=== PATIENT | female | born 1990 | race Caucasian/White ===

== ENCOUNTER → 2016-04-04 | Outpatient (CLI) | payer BC ==
--- NOTE | 2016-04-04 14:53 | FL ---
Esophagram INDICATION: Dysphagia Esophagram is performed with single contrast. Thick and thick barium was utilized. Esophagus has a normal caliber has normal contour to the gastroesophageal junction. Gastroesophageal junction opens to normal caliber. No stenosis or hiatal hernia was identified on post Dima fundopli cation. Secondary contraction was evident at the distal esophagus in the horizontal drinking position. There is complete emptying in the upright view. No intraluminal or extramural defects is evident. IMPRESSIONS: 1. Secondary contraction the horizontal drinking position. 2. Esophagram otherwise appears unremarkable.
== END | disposition home or self-care (01) ==
LOC: RADFLWHC 10:31
PROVIDERS: ATTEND Surgery
DX: R13.10 Dysphagia, unspecified (principal)
CPT/HCPCS: 74220

== ENCOUNTER 2016-04-07 09:33 | Day surgery (SDC) | payer BC ==
[2016-04-04 08:21] VITALS: BMI 21.2
[~2016-04-07 09:33] MED LIST: LACTATED RINGERS 1,000 ML IV SCH
[2016-04-07 10:45] VITALS: RESP 16; TEMP 97.8
[2016-04-07] MEDS ORDERED: LIDOCAINE 1% 20 ML VIAL (10MG/ML) FOR IV START INTRADERMA ONE (10:45)
[2016-04-07] MEDS ORDERED: LIDOCAINE 1% INJ 10MG/ML (20 ML MDV) ONE (10:51)
[2016-04-07] MEDS ORDERED: PROPOFOL 10 MG/ML 20 ML VIAL IV ONE (10:51)
--- NOTE | 2016-04-07 10:54 | P.GSHP ---
History of Present Illness H&P Date: 04/07/16 Chief Complaint: Feeling of fullness and throat Is a 26-year-old female who presents today for EGD. Patient has complaints of feeling food gets stuck in her throat. She's had a previous hiatal hernia repair. Her esophagram shows no evidence of reflux or obstruction. She presents today for EGD. - Constitutional Constitutional: Reports as per HPI Past Medical History Past Medical History: GERD/Reflux Additional Past Medical History / Comment(s): hypoglycemia, hx hiatal hernia, History of Any Multi-Drug Resistant Organisms: None Reported Additional Past Surgical History / Comment(s): conor fundoplication, oral surgery, tear ducts as infant, EGD Past Anesthesia/Blood Transfusion Reactions: Previous Problems w/ Anesthesia, Family History of Problems w/ Anesthesia Additional Past Anesthesia/Blood Transfusion Reaction / Comment(s): grandmother had problems with anesthesia- 'paralyized for 1 week" after surgery- "miloclopramide-succiny choline" was the medication, pt had runny nose for two days post op after EGD Past Psychological History: Anxiety, Depression Smoking Status: Never smoker Past Alcohol Use History: Occasional Past Drug Use History: None Reported - Past Family History Mother Family Medical History: No Reported History Medications and Allergies Home Medications Medication Instructions Recorded Confirmed Type No Known Home Medications [No 04/04/16 04/07/16 History Known Home Medications] Allergies Allergy/AdvReac Type Severity Reaction Status Date / Time adhesive tape Allergy red skin Verified 04/07/16 10:25 Antihistamines - Alkylamine Allergy faints Verified 04/07/16 10:25 pseudoephedrine Allergy Unknown Verified 04/07/16 10:25 [From [facility]] miloclopramide succiny Allergy Unknown Uncoded 04/04/16 08:14 Surgical - Exam Vital Signs Temp Pulse Resp BP Pulse Ox 97.8 F 67 16 101/69 99 04/07/16 10:43 04/07/16 10:43 04/07/16 10:43 04/07/16 10:43 04/07/16 10:43 Assessment and Plan Plan: Dysphagia. We'll perform EGD.
--- NOTE | 2016-04-07 11:01 | P.OP ---
Date of Procedure: 04/07/16 Preoperative Diagnosis: Dysphagia Postoperative Diagnosis: Mild antral gastritis No evidence of hiatal hernia No evidence of esophagitis Procedure(s) Performed: EGD Anesthesia: MAC Surgeon: Tulio Hamlin Pathology: other (Antrum) Condition: stable Disposition: PACU Description of Procedure: The patient's placed on the endoscopy table in the lateral position. She received IV sedation. The gastroscope some placed oropharynx and passed into the esophagus and stomach. The scope was placed through the pylorus. First and second portion of duodenum appeared normal. Scope was then brought back the antrum this. Mildly inflamed. A biopsies performed. Scope was retroflexed and remainder stomach appeared normal. The hiatus was examined. There is no evidence of a hiatal hernia. The GE junction was at 40 cm. The distal esophagus appeared normal. The proximal esophagus appeared normal. Scope was withdrawn for patient.
[2016-04-07 12:11] VITALS: BP 98/67; PULSE 69
== END 2016-04-07 12:13 | disposition home or self-care (01) ==
LOC: ORWHC2ENDO 09:33
PROVIDERS: ATTEND Surgery
DX: K29.50 Unspecified chronic gastritis without bleeding (principal); K21.9 Gastro-esophageal reflux disease without esophagitis; Z88.8 Allergy status to other drugs, medicaments and biological substances; Z91.048 Other nonmedicinal substance allergy status
CPT/HCPCS: 81025; 88305; 88342; 43239; J2001; J2704

== ENCOUNTER 2022-01-14 10:49 | Day surgery (SDC) | payer BC ==
[~2022-01-14 10:49] MED LIST changes: +LIDOCAINE 1% (10MG/ML) FOR IV START INTRADERMA PRN
[2022-01-14] MEDS ORDERED: LACTATED RINGERS 1,000 ML IV ONE (11:50)
[2022-01-14 12:00] VITALS: RESP 16; TEMP 97.7
[2022-01-14] MEDS ORDERED: PROPOFOL 10 MG/ML 20 ML VIAL IV ONE (13:20)
--- NOTE | 2022-01-14 13:35 | P.PCN ---
Date of Procedure: 01/14/22 Procedure(s) Performed: BRIEF HISTORY: Patient is a 31-year-old pleasant white female scheduled for an elective colonoscopy as a part of evaluation of intermittent rectal bleeding. PROCEDURE PERFORMED: Colonoscopy. PREOPERATIVE DIAGNOSIS: Intermittent rectal bleeding. IV sedation per Anesthesia. PROCEDURE: After informed consent was obtained, the patient, was brought into the endoscopy unit. IV sedation was administered by Anesthesia under continuous monitoring. Digital rectal examination revealed a small anal fissure. Initially the Olympus CF-160 flexible video colonoscope was then inserted in the rectum, gradually advanced into the cecum without any difficulty. Careful examination was performed as the scope was gradually being withdrawn. Ileocecal valve and the appendiceal orifice were visualized and appeared normal. Prep was excellent. Mucosa of the cecum, ascending colon, transverse colon, descending colon, sigmoid colon, and rectum appeared normal. Retroflexion was performed in the rectum and no lesions were seen. The patient tolerated the procedure well. IMPRESSION: Normal-appearing colon from rectum to cecum with no evidence of colorectal neoplasia . Small superficial anal fissure. RECOMMENDATIONS: Findings of this examination were discussed with the patient as well as a family.. She was advised to be a high-fiber diet and take fiber supplements a regular basis and avoid straining and constipation.
[2022-01-14 13:59] VITALS: BP 113/75; PULSE 80
== END 2022-01-14 14:35 | disposition home or self-care (01) ==
LOC: ORWHC2ENDO 10:49
PROVIDERS: ATTEND Internal Medicine Gastroenterology
DX: K51.911 Ulcerative colitis, unspecified with rectal bleeding (principal)
CPT/HCPCS: 84703; 45378; J2704

== ENCOUNTER → 2023-01-05 | Outpatient (CLI) | payer BC | END | disposition home or self-care (01) | LOC: LABWHC1 15:31 | PROVIDERS: ATTEND Family Medicine | DX: M79.89 Other specified soft tissue disorders (principal); R09.02 Hypoxemia; R76.8 Other specified abnormal immunological findings in serum | CPT/HCPCS: 36415; 85379 ==

== ENCOUNTER → 2023-06-18 | Outpatient (CLI) | payer BC ==
--- NOTE | 2023-06-18 15:42 | P.SLEEP ---
History of Present Illness DATE: 06/18/2023 CONSULTATION/NEW PATIENT EVALUATION HISTORY OF PRESENT ILLNESS/SLEEP-WAKE EVALUATION: 33-year-old lady had been e valuated in the sleep center for possible obstructive sleep apnea hypopnea syndrome and significant excessive daytime sleepiness. Patient had oximetry which was done in show primary care physician office and test showed oxygen desaturation for below 90% during the night for 30 sec. SLEEP SCHEDULE: Usually patient goes to bed after 9 and sleep until 8 AM 7 days a week. FALLING ASLEEP: No problems with falling asleep, although there is a TV in bedroom. DURING SLEEP: Patient sleeps in different positions including back, side and stomach position with loud snoring, awakenings from sleep with choking up to 4 times per night. No history of nocturia no history of hypnogogical hallucinations, sleep paralysis, or cataplexy. DURING THE DAY/WAKE STATE: In the morning patient wake up tired, falling asleep during the day. Patient has problem with concentration, irritability, depression and anxiety. [place] Sleepiness Scale is in very high range of 17. Patient trying to avoid naps because feels not well after taking nap. She takes up to 5 rest. During the day. PAST MEDICAL HISTORY: Mixed autoimmune disease, headaches, depression, nasal septal deviation. PAST SURGICAL HISTORY: Claus fundoplication for hiatal hernia in 2016. MEDICATIONS: Please see below, additionally BuSpar as needed. SOCIAL HISTORY: Please see below. FAMILY HISTORY: Heart problems, arthritis, cancer, mental illness, lung problems. REVIEW OF SYSTEMS: Loud snoring, multiple awakenings from sleep, sleepiness during the day. No fevers. No double vision. No recent chest pain. No shortness of breath. No abdominal pain. No bleeding episodes. No blood in urine. No seizure episodes. PHYSICAL EXAMINATION: GENERAL: A pleasant patient without any distress. VITAL SIGNS: Please see below, weight 145.8 pounds, BMI 25.8. HEENT: PERRLA, EOMI. Evaluation of oropharynx showed tongue protrudes midline, low position of soft palate Mallampati 3. NECK: Supple. No JVD. Thyroid is not palpable. 14 inches in circumference. LUNGS: Clear to percussion and to auscultation. Good air exchange. No wheezing or rhonchi. HEART: S1, S2 regular. No murmurs, gallops or rubs. ABDOMEN: Soft and nontender. Bowel sounds are present. No organomegaly appreciated. EXTREMITIES: No clubbing or cyanosis. FUEL CELL ENGINEER: Awake, alert, and oriented x3. Cranial nerves 2 to 7 intact. There is no fasciculation or atrophy noted. No focal deficits observed. ASSESSMENT: 1. Loud snoring, multiple awakenings from sleep, low position of soft palate Mallampati 3, sleepiness. Obstructive sleep apnea hypopnea syndrome. 2. Extremely high [place] Sleepiness Scale of 17 dictate necessity to include hypersomnia and narcolepsy type II in differential diagnosis. 3. Headaches. 4. Autoimmune mixed connective tissue disease. 5 status post Claus fundoplication for hiatal hernia. 6 . History of depression. 7. History of anxiety. 8. Nasal septal deviation. PLAN: 1. Polysomnography for evaluation of patient's breathing during sleep. 2. Following plan after reading sleep study. 3. Preferable position during sleep on the side. 4. No driving if patient feels any sleepiness. Patient is aware of civil and criminal liability for unsafe driving. 5. Sleep hygiene with regular sleep time for at least 7.5-8 hours. 6. Watching weight. Thank you very much for referring this patient for consultation. Sincerely, Oz Deleon MD, PhD, FAASM. Diplomat of [place] [employer], Sleep Medicine Board by [place] [employer] [place] [employer] [facility] [place] Past Medical History Past Medical History: Fibromyalgia, GERD/Reflux Additional Past Medical History / Comment(s): hypoglycemia, hx hiatal hernia. RECENTLY DIAGNOSED WITH AUTOIMMMUNE- MIXED CONNECTIVE TISSUE DISORDER. History of Any Multi-Drug Resistant Organisms: None Reported Additional Past Surgical History / Comment(s): Claus fundoplication. Oral surgery. Tear ducts as . EGD Past Anesthesia/Blood Transfusion Reactions: Family History of Problems w/ Anesthesia Additional Past Anesthesia/Blood Transfusion Reaction / Comment(s): grandmother had problems with anesthesia- 'paralyized for 1 week" after surgery- "miloclopramide-succiny choline" was the medication, pt had runny nose for two days post op after EGD Past Psychological History: Anxiety, Depression Smoking Status: Never smoker Past Alcohol Use History: Occasional Past Drug Use History: None Reported - Past Family History Mother Family Medical History: No Reported History Medications and Allergies Home Medications Medication Instructions Recorded Confirmed Type Ergocalciferol [Vitamin D2 (1250 1 tab PO WE 01/10/22 06/18/23 History Mcg = 46686 Iu)] Cyclobenzaprine [Flexeril] 5 mg PO PRN 06/18/23 History Ibuprofen [Motrin] 800 mg PRN 06/18/23 History predniSONE 0 mg PO DIRECTED 06/18/23 06/18/23 History Allergies Allergy/AdvReac Type Severity Reaction Status Date / Time adhesive tape Allergy red skin Verified 01/14/22 11:34 Antihistamines - Alkylamine Allergy faints Verified 01/14/22 11:34 miloclopramide succiny Allergy Unknown Uncoded 01/14/22 11:34 Physical Exam Vitals: Intake and Output 06/18/23 06/18/23 06/18/23 06:59 14:59 22:59 Other: Weight 65.771 kg Sleep Note - Sleep Data ESS Total: 17 - Sleep Note Sleep Note: Temperature: Pulse Rate: Respiratory Rate: Blood Pressure: SpO2: Height: 5 ft 3 in Weight: 65.771 kg BMI: Neck Circumference:
== END ==
LOC: 3 N SLEEP 14:52
PROVIDERS: ATTEND Internal Medicine
DX: G47.33 Obstructive sleep apnea (adult) (pediatric) (principal); G47.10 Hypersomnia, unspecified; R51.9 Headache, unspecified; M35.1 Other overlap syndromes; J34.2 Deviated nasal septum; Z86.59 Personal history of other mental and behavioral disorders; Z98.890 Other specified postprocedural states; Z90.49 Acquired absence of other specified parts of digestive tract; Z91.048 Other nonmedicinal substance allergy status; Z88.8 Allergy status to other drugs, medicaments and biological substances
CPT/HCPCS: 99202

== ENCOUNTER → 2023-06-29 | Outpatient (CLI) | payer BC ==
--- NOTE | 2023-07-01 14:58 | P.PCN ---
Description of Procedure: CLINICAL: A home sleep apnea test has been done for confirmation of possible obstructive sleep apnea-hypopnea syndrome. DESCRIPTION OF PROCEDURE: RESULTS: Recording time was 6 hours 33 minutes. Evaluation time was 6 hours 21 minutes. Evaluation time is sufficient for making conclusion about results of the test. Raw data of sleep recording has been reviewed and is adequate. Respiratory channel showed 9 apneas and 17 hypopneas. Apnea-hypopnea index was 4.1 per hour. Pulse rate in the range between minimum 66, maximum 123, average 87 by computer calculation. Lowest desaturation was 84%. IMPRESSION: 1. No significant respiratory abnormalities following today's criteria. 2. Patient presents with symptoms of significant excessive daytime sleepiness with [place] Sleepiness Scale 17 which dictate necessity to include narcolepsy and idiopathic hypersomnia differential diagnosis. Please see other impressions from consultation. PLAN: 1. Multiple sleep latency test for objective evaluation symptoms of excessive daytime sleepiness. 2. Following plan after reading MSLT. 3. No driving if feeling any sleepiness. 4. Sleep hygiene with regular time in bed for at least 8 hours. Thank you very much for allowing me to participate in the management of your patient. Sincerely, Oz Deleon MD, PhD, FAASM Diplomat of [employer] Sleep Medicine Board of [employer] [facility] [place]
== END ==
LOC: 3 N SLEEP 13:05
PROVIDERS: ATTEND Internal Medicine
DX: G47.33 Obstructive sleep apnea (adult) (pediatric) (principal); G47.10 Hypersomnia, unspecified; Z91.048 Other nonmedicinal substance allergy status; Z88.8 Allergy status to other drugs, medicaments and biological substances

== ENCOUNTER 2024-01-18 08:09 | Day surgery (SDC) | payer BC ==
[2024-01-15 10:42] VITALS: BMI 26.5
[~2024-01-18 08:09] MED LIST changes: -LACTATED RINGERS 1,000 ML IV SCH
[2024-01-18] MEDS: IV FLUID CONTINUATION 1,000 ML IV ONE (08:21)
[2024-01-18 08:43] LABS: Glucose,Whole Blood 93 mg/dL (70-110)
[2024-01-18] MEDS: LACTATED RINGERS 1,000 ML IV SCH (08:45)
[2024-01-18 08:48] VITALS: TEMP 97.4
[2024-01-18] MEDS: IPRATROPIUM-ALBUTEROL 3 ML NEB INHALATION STA (08:54)
[2024-01-18] MEDS ORDERED: fentaNYL (PF) 50 MCG/ML 2 ML AMP ONE (09:07)
[2024-01-18] MEDS ORDERED: PROPOFOL 10 MG/ML 20 ML VIAL IV ONE (09:07)
[2024-01-18] MEDS ORDERED: LIDOCAINE 2% (PF) 20 MG/ML 5 ML VIAL ONE (09:07)
--- NOTE | 2024-01-18 09:09 | P.GSHP ---
History of Present Illness H&P Date: 01/18/24 Chief Complaint: Gerd This a 33-year-old female who presents a for EGD. Patient history of GERD. Patient's previous history of large hiatal hernia repair. Past Medical History Past Medical History: Fibromyalgia, GERD/Reflux, Sleep Apnea/CPAP/BIPAP Additional Past Medical History / Comment(s): having increase reflux,wakes up choking,states "I think I was very dehydrated but during night of 01-12-24 pt got up to go to the bathroom and felt dizzy then past out-has done that in the past", following with security system technician and Dr Aleks Danielle, hypoglycemia, hx hiatal hernia. RECENTLY DIAGNOSED WITH AUTOIMMMUNE- MIXED CONNECTIVE TISSUE DISORDER,routine steroids every couple of months, runs a high heart rate 140s,low oxygen levels-89% RA-no supplemental oxygen,no cpap History of Any Multi-Drug Resistant Organisms: None Reported Additional Past Surgical History / Comment(s): Claus fundoplication 2016. Oral surgery. Tear ducts as . EGD Past Anesthesia/Blood Transfusion Reactions: Family History of Problems w/ Anesthesia Additional Past Anesthesia/Blood Transfusion Reaction / Comment(s): grandmother had problems with anesthesia- 'paralyized for 1 week" after surgery- "miloclopramide-succiny choline" was the medication, pt had runny nose for two days post op after EGD. no blood transfusion. took awhile to wake up w/ anesthesia w/ last colonoscopy Smoking Status: Never smoker - Past Family History Mother Family Medical History: Thyroid Disorder Medications and Allergies Home Medications Medication Instructions Recorded Confirmed Type Ergocalciferol [Vitamin D2 (1250 1 tab PO WE 01/10/22 01/15/24 History Mcg = 32134 Iu)] Cyclobenzaprine [Flexeril] 5 mg PO HS PRN 06/18/23 01/15/24 History Ibuprofen [Motrin] 800 mg PO TID PRN 06/18/23 01/15/24 History predniSONE 0 mg PO DIRECTED 06/18/23 01/15/24 History DULoxetine HCL [Cymbalta] 30 mg PO HS 01/15/24 01/15/24 History Allergies Allergy/AdvReac Type Severity Reaction Status Date / Time adhesive tape Allergy red skin Verified 01/14/22 11:34 Antihistamines - Alkylamine Allergy faints Verified 01/14/22 11:34 miloclopramide succiny Allergy grandmother Uncoded 01/15/24 10:28 was paralyzed for 1 week post op. Surgical - Exam Vital Signs Temp Pulse Resp BP Pulse Ox 97.4 F L 100 16 130/73 100 01/18/24 08:47 01/18/24 08:47 01/18/24 08:47 01/18/24 08:47 01/18/24 08:47 - General well developed, well nourished, no distress - Eyes PERRL - ENT normal pinna - Neck no masses - Respiratory normal expansion - Cardiovascular Rhythm: regular - Abdomen Abdomen: soft, non tender Assessment and Plan Assessment: Gerd. Will perform EGD.
--- NOTE | 2024-01-18 09:17 | P.OP ---
Date of Procedure: 01/18/24 Preoperative Diagnosis: Gerd Postoperative Diagnosis: Antral gastritis Procedure(s) Performed: EGD Anesthesia: LEANDRA Surgeon: Tulio Hamlin Pathology: other (Antrum) Condition: stable Disposition: PACU Description of Procedure: The patient was placed on the endoscopy table in the lateral position. She r eceived IV sedation. The gas was placed oropharynx passed in the esophagus and stomach. Scope was placed with the pylorus. The first second portion of duodenum appeared normal. Scope was then brought back to the antrum this appeared minimal Flaim. A biopsy performed. The scope was then retroflexed there was no significant hiatal hernia seen. The GE junction was at 40 cm. The distal esophagus appeared well. The proximal esophagus were normal. Scope withdrawn for the patient. Due to the patient symptoms a gerd; esophagram upper GI was ordered
[2024-01-18 09:38] VITALS: BP 111/77; PULSE 83; RESP 16
== END 2024-01-18 10:05 | disposition home or self-care (01) ==
LOC: ORWHC2ENDO 08:09
PROVIDERS: ATTEND Surgery
DX: K44.9 Diaphragmatic hernia without obstruction or gangrene (principal); K21.9 Gastro-esophageal reflux disease without esophagitis; M79.7 Fibromyalgia; G47.33 Obstructive sleep apnea (adult) (pediatric); F41.9 Anxiety disorder, unspecified; F32.A Depression, unspecified; Z79.899 Other long term (current) drug therapy; Z88.8 Allergy status to other drugs, medicaments and biological substances; Z99.89 Dependence on other enabling machines and devices; Z79.52 Long term (current) use of systemic steroids; Z91.048 Other nonmedicinal substance allergy status
CPT/HCPCS: 81025; 88305; 43239; J3010; J2704; J2003

== ENCOUNTER → 2024-02-11 | Outpatient (CLI) | payer BC ==
--- NOTE | 2024-02-11 11:28 | FL ---
EXAMINATION TYPE: FL UGI w esophagus DATE OF EXAM: 02/11/2024 10:45 AM COMPARISON: None CLINICAL INDICATION:Female, 33 years old with history of K21.00 Gerd; TECHNIQUE: The procedure was explained and patient history elicited. All patient questions were ans wered prior to start of procedure. A brim molder radiograph of the abdomen was also reviewed. Multiple flu oroscopic spot images of the esophagus, stomach and duodenum were obtained following ingestion of liq uid barium and EZ-gas crystals. Fluoroscopic time:1 min 42 sec Fluoroscopic images:0 Radiographs taken: 108 DAP: not reported [id number] FINDINGS: Upper GI examination: The brim molder abdominal radiograph demonstrates a normal bowel gas pattern without dilated loops of small or large bowel. There is no evidence for organomegaly or pneumoperitoneum. No abnormal calcificat ions. The visualized osseous structures are intact. The esophagus demonstrates normal primary and secondary peristalsis. The esophageal mucosa is smooth without evidence of focal stricture, ulceration, or abnormal outpouching. There was evidence of david roesophageal reflux disease worrisome the patient is lying prone. The stomach and duodenum demonstrat e a normal course and contour. There is no evidence of focal gastric or duodenal ulceration, strictu re. There is a small outpouching of contrast likely postsurgical morphology at the gastroesophageal j unction. A appear within normal limits. IMPRESSION: Postsurgical changes of the gastroesophageal junction with esophageal reflux worse when laying prone [facility] Corey Suarez, , 02/11/2024 11:26 AM
== END | disposition home or self-care (01) ==
LOC: RADFLMAIN 08:55
PROVIDERS: ATTEND Surgery
DX: K21.00 Gastro-esophageal reflux disease with esophagitis, without bleeding (principal); K44.9 Diaphragmatic hernia without obstruction or gangrene; Z98.890 Other specified postprocedural states
CPT/HCPCS: 74240